=== PATIENT | male | born 1960 | race Caucasian/White ===

== ENCOUNTER 2017-09-03 08:32 | Emergency (ER) | payer SELFPAY ==
[~2017-09-03] VITALS: Ht 188 cm; Wt 72.7 kg
[~2017-09-03 08:32] MED LIST: ALBU0.086 INH; ALBU8I INH; BACT800T5 PO; PRED20 PO; SYMB160A INH
[2017-09-03 08:40] VITALS: BP 165/100; PULSE 106; RESP 22; TEMP 98.4; O2SAT 97
[2017-09-03] MEDS ORDERED: VENTAER INH (08:40)
[2017-09-03] MEDS ORDERED: SYMB80AE INH (08:40)
[2017-09-03] MEDS ORDERED: SPIRCAP INH (08:40)
--- NOTE | 2017-09-03 08:55 | PD ---
HPI Chief Complaint: Respiratory Symptoms Time Seen by Provider: 08:44 Travel History International Travel<30 days: No Contact w/Intl Traveler<30days: No Traveled to known affect area: No History of Present Illness HPI This patient complains of shortness of breath. Duration 2 days. Symptoms moderately severe. He developed a dry cough as well as wheezing and congestion. No fever or chest pain. Symptoms have no exacerbating factors. He quit smoking a year ago. He has COPD. No alleviating factors. PFSH Past Medical History Arthritis: No Asthma: No Blood Disorders: No Heart Rhythm Problems: No Cancer: No Cardiovascular Problems: No High Cholesterol: No Chemotherapy: No Chest Pain: No Congestive Heart Failure: No COPD: Yes Cerebrovascular Accident: No Diminished Hearing: No Endocrine: No Gastrointestinal Disorders: Yes GERD: No Glaucoma: No Genitourinary: No Headaches: No Hepatitis: No Hiatal Hernia: No Hypertension: No Immune Disorder: No Kidney Stones: No Musculoskeletal: No Neurologic: No Psychiatric: No Reproductive: No Respiratory: Yes (COPD) Migraines: No Myocardial Infarction: No Radiation Therapy: No Renal Failure: No Seizures: No Sickle Cell Disease: No Sleep Apnea: No Ulcer: No Tetanus Vaccination: < 5 Years Influenza Vaccination: No Past Surgical History AICD: No Appendectomy: No Arteriovenous Shunt: No Cholecystectomy: No Insulin Pump: No Joint Replacement: No Pacemaker: No Other Surgery: Yes Social History Alcohol Use: Yes (4 BEERS DAILY) Tobacco Use: No Substance Use: No Allergies-Medications (Allergen,Severity, Reaction): Coded Allergies: codeine (Verified Allergy, Severe, 09/03/17) penicillin G (Verified Allergy, Severe, SOB, 09/03/17) Reported Meds & Prescriptions Reported Meds & Active Scripts Active Reported Symbicort Inh (Budesonide/Formoterol Fumarate) 80-4.5 Mcg/Act Aero 2 Puff INH Q12HR Spiriva Handihaler (Tiotropium Inh) 18 Mcg Cap 18 Mcg INH DAILY 1 capsule = 18 mcg Ventolin Hfa 18 GM Inh (Albuterol Sulfate) 90 Mcg/Act Aer 2 Puff INH Q4-6H PRN Review of Systems General / Constitutional: No: Fever Eyes: No: Visual changes HENT: Positive: Rhinorrhea, Congestion, No: Headaches Cardiovascular: No: Chest Pain or Discomfort Respiratory: Positive: Cough, Shortness of Breath Gastrointestinal: No: Abdominal Pain Genitourinary: No: Dysuria Musculoskeletal: No: Pain Skin: No Rash Neurologic: No: Weakness Psychiatric: No: Depression Endocrine: No: Polydipsia Hematologic/Lymphatic: No: Easy Bruising Physical Exam Narrative GENERAL: Well-nourished, well-developed patient who is short of breath. SKIN: Focused skin assessment reveals no rash and nodules. Skin is Warm and dry. HEAD: Atraumatic. Normocephalic. EYES: Pupils equal and round. No scleral icterus. No injection or drainage. ENT: No nasal bleeding or discharge. Mucous membranes pink and moist. NECK: Trachea midline. No JVD. CARDIOVASCULAR: Regular rate and rhythm. No murmur appreciated. RESPIRATORY: Some accessory muscle use. Diffuse expiratory wheezing and rhonchi. Breath sounds equal bilaterally. GASTROINTESTINAL: Abdomen soft, non-tender, nondistended. Hepatic and splenic margins not palpable. MUSCULOSKELETAL: No obvious deformities. No clubbing. No cyanosis. No edema. NEUROLOGICAL: Awake and alert. No obvious cranial nerve deficits. Motor grossly within normal limits. Normal speech. PSYCHIATRIC: Appropriate mood and affect; insight and judgment normal. Data Data Last Documented VS Vital Signs Date Time Temp Pulse Resp B/P (MAP) Pulse Ox O2 Delivery O2 Flow Rate FiO2 09/03/17 09:06 97 21 09/03/17 09:02 Room Air 09/03/17 08:40 98.4 106 22 165/100 (121) Orders Orders Complete Blood Count With Diff (09/03/17 08:48) Basic Metabolic Panel (Bmp) (09/03/17 08:48) Influenzae A/B Antigen (09/03/17 08:48) Iv Access Insert/Monitor (09/03/17 08:48) Electrocardiogram (09/03/17 08:48) Ecg Monitoring (09/03/17 08:48) Oximetry (09/03/17 08:48) Chest, Single Ap (09/03/17 08:48) Sodium Chloride 0.9% Flush (Ns Flush) (09/03/17 09:00) Albuterol-Ipratropium Neb (Duoneb Neb) (09/03/17 09:00) Labs Laboratory Tests Test 09/03/17 07:00 White Blood Count 11.2 TH/MM3 Red Blood Count 5.03 MIL/MM3 Hemoglobin 16.3 GM/DL Hematocrit 48.2 % Mean Corpuscular Volume 95.7 FL Mean Corpuscular Hemoglobin 32.3 PG Mean Corpuscular Hemoglobin Concent 33.8 % Red Cell Distribution Width 13.8 % Platelet Count 289 TH/MM3 Mean Platelet Volume 7.9 FL Neutrophils (%) (Auto) 41.0 % Lymphocytes (%) (Auto) 38.6 % Monocytes (%) (Auto) 9.9 % Eosinophils (%) (Auto) 9.0 % Basophils (%) (Auto) 1.5 % Neutrophils # (Auto) 4.6 TH/MM3 Lymphocytes # (Auto) 4.3 TH/MM3 Monocytes # (Auto) 1.1 TH/MM3 Eosinophils # (Auto) 1.0 TH/MM3 Basophils # (Auto) 0.2 TH/MM3 CBC Comment DIFF FINAL Differential Comment Blood Urea Nitrogen 17 MG/DL Creatinine 1.30 MG/DL Random Glucose 98 MG/DL Calcium Level 9.7 MG/DL Sodium Level 137 MEQ/L Potassium Level 4.3 MEQ/L Chloride Level 101 MEQ/L Carbon Dioxide Level 29.5 MEQ/L Anion Gap 7 MEQ/L Estimat Glomerular Filtration Rate 57 ML/MIN MDM Medical Decision Making Medical Screen Exam Complete: Yes Emergency Medical Condition: Yes Medical Record Reviewed: Yes Differential Diagnosis COPD exacerbation, bronchitis, nausea Narrative Course I have reviewed the patient's electronic medical record. Patient's been here many times for COPD exacerbations IV placed CBC is normal Metabolic profile is normal I reviewed his chest x-ray is normal I reviewed his EKG which shows sinus tachycardia without ectopy or ST elevation He received IV soluMedrol in the ambulance and 2 breathing treatments I gave him more breathing treatments here Influenza swab is negative On recheck he is improved. Still has some congestion wheeze. I refilled his nebulizer liquid with albuterol and Atrovent. He is given 5 days of prednisone. Diagnosis Primary Impression: COPD with exacerbation Additional Instructions: The patient was advised to follow up with their physician and return if they worsen. Med/Other Pt SpecificInfo: Prescription(s) given Scripts Prednisone (Prednisone) 20 Mg Tab 40 MG PO DAILY, #10 TAB 0 Refills Take 40 mg (2 tablets) daily for 5 days Prov: Nolan Beasley MD 09/03/17 Ipratropium Neb (Ipratropium Neb) 0.5 Mg/2.5 Ml Amp 0.5 MG NEB Q12HR NEB for Breathing Treatment, #60 NEBULE 0 Refills Prov: Nolan Beasley MD 09/03/17 Albuterol Neb (Albuterol Neb) 2.5 Mg/3 Ml Neb 2.5 MG NEB Q4HR NEB Y for SHORTNESS OF BREATH, #60 NEBULE 0 Refills Prov: Nolan Beasley MD 09/03/17 Disposition: 01 DISCHARGE HOME Condition: Stable Nolan Beasley MD Sep 03, 2017 08:55
[2017-09-03] MEDS ORDERED: SODIUM CHLORIDE 0.9% FLUSH 10 ML FLUSH IVF PRN (09:00)
[2017-09-03 09:02] VITALS: O2SAT 98
[2017-09-03] MEDS: RESP: ALBUTEROL 2.5 MG/IPRATROPIUM 0.5 MG NEB (SCH) INH (09:03)
[2017-09-03 09:06] VITALS: O2SAT 97
--- NOTE | 2017-09-03 09:15 | RADRPT ---
EXAM DATE/TIME: 09/03/2017 08:55 [facility] COMPARISON: CHEST SINGLE AP, June 11, 2014, 19:57. INDICATIONS : Short of breath. Chest pressure. MEDICAL HISTORY : Chronic obstructive pulmonary disease. SURGICAL HISTORY : None. ENCOUNTER: Initial ACUITY: 3 days PAIN SCORE: 1/10 LOCATION: Bilateral chest FINDINGS: A single view of the chest demonstrates the lungs to be symmetrically aerated without evidence of mas s, infiltrate or effusion. The cardiomediastinal contours are unremarkable. Osseous structures are intact with hypertrophic degenerative spurring right-sided lower thoracic spine stable and unchanged. CONCLUSION: No acute disease. No significant change has occurred. Florentin Lomax MD on September 03, 2017 at 9:11 Board Certified Radiologist. This report was verified electronically.
[2017-09-03 09:23] LABS: AUTOMATED NEUTROPHIL # 4.6 TH/MM3 (1.8-7.7); BASOPHIL # 0.2 TH/MM3 (0-0.2); BASOPHIL % 1.5 % (0.0-2.0); HEMATOCRIT 48.2 % (39.0-51.0); HEMOGLOBIN 16.3 GM/DL (13.0-17.0); LYMPH % 38.6 % (9.0-44.0); LYMPHOCYTE # 4.3 TH/MM3 (1.0-4.8); MEAN CELL VOLUME 95.7 FL (80.0-100.0); MEAN CORPUSCULAR HEMOGLOBIN 32.3 PG (27.0-34.0); MEAN CORPUSCULAR HGB CONC 33.8 % (32.0-36.0); MEAN PLATELET VOLUME 7.9 FL (7.0-11.0); MONO % 9.9 % (0.0-8.0); MONOCYTE # 1.1 TH/MM3 (0-0.9); PLATELET COUNT 289 TH/MM3 (150-450); RED BLOOD COUNT 5.03 MIL/MM3 (4.50-5.90); RED CELL DISTRIBUTION WIDTH 13.8 % (11.6-17.2); WHITE BLOOD COUNT 11.2 TH/MM3 (4.0-11.0)
[2017-09-03 09:39] LABS: BICARBONATE 29.5 MEQ/L (21.0-32.0); CALCIUM 9.7 MG/DL (8.5-10.1); CREATININE 1.3 MG/DL (0.60-1.30)
[2017-09-03 12:00] VITALS: BP 139/73; PULSE 92; RESP 18; O2SAT 96
[2017-09-03] MEDS ORDERED: PRED20 PO (12:10)
[2017-09-03] MEDS ORDERED: ALBU0.08 NEB (12:10)
[2017-09-03] MEDS ORDERED: IPRA0.02 NEB (12:10)
--- NOTE | 2017-09-03 14:47 | EKG ---
Date Performed: 09/03/2017 Time Performed: 08:42:24 PTAGE: 57 years EKG: SINUS TACHYCARDIA RIGHT ATRIAL ENLARGEMENT POSSIBLE LEFT ATRIAL ENLARGEMENT POSSIBLE LEFT V ENTRICULAR HYPERTROPHY MODERATE ST DEPRESSION ABNORMAL ECG Since PREVIOUS TRACING , no significant change noted PREVIOUS TRACIN06/15/2013 04.08 DOCTOR: Shreya Lagnua Interpretating Date/Time 09/03/2017 14:46:48
== END 2017-09-03 12:32 | disposition home or self-care (01) ==
LOC: NEPE 08:32
DX: J44.1 Chronic obstructive pulmonary disease with (acute) exacerbation (principal); Z87.891 Personal history of nicotine dependence
CPT/HCPCS: 71045; 80048; 85025; 87804; 93005; 94640; 94664; 99285